=== PATIENT | female | born 1990 | race Caucasian/White ===

== ENCOUNTER → 2016-08-09 | Outpatient (CLI) | payer MEDICAID | LOC: RAD 10:15 | DX: R94.5 Abnormal results of liver function studies (principal) ==

== ENCOUNTER → 2016-12-24 | Outpatient (CLI) | payer MEDICAID | LOC: LAB 17:02 | DX: R42 Dizziness and giddiness (principal); R11.0 Nausea; R51 Headache; R20.0 Anesthesia of skin; R20.2 Paresthesia of skin ==

== ENCOUNTER → 2017-04-22 | Outpatient (CLI) | payer MEDICAID | LOC: RAD 10:52 | DX: M79.671 Pain in right foot (principal) ==

== ENCOUNTER → 2018-01-04 | Outpatient (CLI) | payer MEDICAID | LOC: RAD 14:00 | DX: S90.851A Superficial foreign body, right foot, initial encounter (principal) ==